=== PATIENT | female | born 1950 | race African-American/Black ===

== ENCOUNTER 2017-10-07 09:58 | Inpatient (IN) | payer OTHER ==
[~2017-10-07] VITALS: Ht 165.1 cm; Wt 55.3 kg
[2017-10-07] VITALS (19 sets, daily range): BP systolic 129–280; BP diastolic 73–166
--- NOTE | ~2017-10-07 | 2DMMODE ---
[facility] [place] [address] 2 D/M-MODE ECHOCARDIOGRAM Name: [facility] #: 242-P ADM IN M.R.#: [id number] Admission: 10/07/17 Attend Phys: Aaron Lomeli Discharge: Date of : 48 Date of Service: 10/08/17 1428 Report #: [id number] THIS REPORT FOR: //name// APPROVED REPORT Study performed: 10/08/2017 09:31:40 EXAM: Comprehensive 2D, Doppler, and color-flow Echocardiogram Patient Location: ICU Room #: 242 Status: routine BSA: 1.64 BP: 177/65 mmHg Other Information Study Quality: Adequate Technically limited study due to lung disease. Indications CVA/TIA Diabetes Hypertension/HDD Echo Enhancing Agent Indication: Rule out Shunt Agent(s) / Amount(s) Used: Agitated Saline 6 cc 2D Dimensions RVDd: 22.24 mm LVEF(%): 65.57 (>50%) IVSd: 11.07 (7-11mm) LVOT Diam: 15.33 (18-24mm) LVDd: 39.74 mm PWd: 10.32 (7-11mm) LVDs: 25.62 (25-40mm) Aortic Root: 26.24 mm IVC: 19.00 mm Acuna's LVEF: 65.57 % Volumes Left Atrial Volume (Systole) Single Plane 4CH: 21.41 mL Single Plane 2CH: 32.09 mL LA ESV Index: 21.00 mL/m2 Aortic Valve AoV Peak Dimas.: 2.01 m/s AO Peak Gr.: 16.12 mmHg LVOT Max P.[address] [facility] [address] [address] 2 D/M-MODE ECHOCARDIOGRAM Name: ANNA MARIEPARRIS [facility] Room #: [facility] IN ..#: [id number] Admission: 10/07/17 Attend Phys: Aaron Lomeli Discharge: Date of : 48 Date of Service: 10/08/17 1428 Report #: [id number] LVOT Max V: 0.94 m/s DAISY Vmax: 0.87 cm2 AI Vmax: 4.24 m/s AI Barron: 3.39 m/s2 AI PHT: 363.28 ms Mitral Valve E/A Ratio: 0.7 MV Decel. Time: 228.58 ms MV E Max Dimas.: 0.69 m/s MV A Dimas.: 1.05 m/s MV PHT: 66.29 ms IVRT: 79.58 ms Pulmonary Valve PV Peak Dimas.: 1.10 m/s PV Peak Gr.: 4.81 mmHg Pulmonary Vein P Vein S: 0.67 m/s P Vein A: 0.26 m/s P Vein D: 0.27 m/s P Vein A Dur.: 117.6 msec P Vein S/D Ratio: 2.48 Tricuspid Valve RAP Estimate: 5.00 mmHg Left Ventricle The left ventricle is normal size. Mild concentric left ventricular hypertrophy. The left ventricular systolic function is normal. The left ventricular ejection fraction is within the normal range. LVEF is 60-65%. Mild diastolic dysfunction is present (impaired relaxation pattern). Right Ventricle The right ventricle is normal size. The right ventricular systolic function is normal. Atria The left atrium size is normal. Injection of bubbles documented no interatrial shunt. The right atrium size is normal. Aortic Valve The aortic valve is normal in structure. Mild to moderate aortic regurgitation. There is no aortic valvular stenosis. Mitral Valve The mitral valve is normal in structure. Trace mitral regurgitation. [facility] [address] [place] [address] 2 D/M-MODE ECHOCARDIOGRAM Name: PARRIS THRASHER Room #: 242-P [facility] IN [facility]#: [id number] Admission: 10/07/17 Attend Phys: Aaron Lomeli Discharge: Date of : 48 Date of Service: 10/08/17 1428 Report #: [id number] No evidence of mitral valve stenosis. Tricuspid Valve The tricuspid valve is normal in structure. There is no tricuspid valve regurgitation noted. Unable to assess PA pressure. Pulmonic Valve The pulmonary valve is normal in structure. There is no pulmonic valvular regurgitation. Great Vessels The aortic root is normal in size. Ascending aorta is not well visualized. IVC is normal in size and collapses >50% with inspiration. Pericardium There is no pericardial effusion. <Conclusion> The left ventricle is normal size. Mild concentric left ventricular hypertrophy. The left ventricular systolic function is normal. Mild diastolic dysfunction is present (impaired relaxation pattern). The right ventricle is normal size. The left atrium size is normal. Injection of bubbles documented no interatrial shunt. Mild to moderate aortic regurgitation. Trace mitral regurgitation. <ELECTRONICALLY SIGNED> By: Anderson Silva MD 10/08/17 1428 1428 1428 Anderson Silva MD /INF
--- NOTE | ~2017-10-07 | HC ---
[facility] [place] [address] CONSULTATION Name: PARRIS THRASHER Room #: 404-P [facility] IN M.R.#: [id number] Admission: 10/07/17 Attend Phys: Aaron Yang Discharge: 10/10/17 Date of : 48 Report #: [id number] THIS REPORT FOR: //name// CC: LAM physician/PCP Aaron Yang DATE OF SERVICE: 10/07/2017 HISTORY OF PRESENT ILLNESS: This is a 67-year-old female patient who was evaluated by me for stroke-like symptoms on the right side. This patient was noticed to be somewhat ataxic and some nonspecific symptom on the right side. She indicated that she was dragging her leg. Symptoms have started yesterday, but she did not seek any medical attention. Symptom did not become too much worse as I understand and was stable. She has longstanding hypertension. She stopped seeing a doctor long time ago. She has not checked her blood pressure. She does not know what her last blood pressure was. REVIEW OF SYSTEMS: uncontrolled hypertension for a long period of time. She has not a physician she has not seen a physician and she has not checked her blood pressure on any outside facility for a long time. It looks like she is also a diabetic and has not taken any treatment for her diabetes either. Her cholesterol is pretty high, but she does not even know that and is not taking any medication. It looks like she has multiple vascular risk factors and she has not seen any physician or had any management of that. Review of systems is positive for diabetes, hypertension and now stroke. 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 This was her relevant 14-point review of system. PAST MEDICAL HISTORY: Positive for uncontrolled hypertension. FAMILY HISTORY: Negative for any early age stroke. SOCIAL HISTORY: She smokes. PHYSICAL EXAMINATION: NEUROLOGICAL: Indicate she is alert. She is responsive. She is a very nice person but does not take care of her vascular risk factor. Her speech, concentration, fund of knowledge and memory is at her baseline. Cranial nerve examination 2-12 is mostly unremarkable. She does have some altered sensation, but she does not do very well with [id number]-[id number] or iqxx-wu-egmn. Her tone looks symmetrical. CARDIAC: Examination demonstrates normal heart sounds and no atrial fibrillation. PULMONARY: No respiratory difficulty was noted. EXTREMITIES: Her pulses are palpable. She has no edema, cyanosis or jaundice. VITAL SIGNS: Her blood pressure now is 149/143 and it was 280/152 when she came [address] [address] CONSULTATION Name: PARRIS THRASHER Room #: 404-P [facility] IN .R.#: [id number] Admission: 10/07/17 Attend Phys: Aaron Yang Discharge: 10/10/17 Date of : 48 Report #: [id number]. She probably has been hypertensive for long time. LABORATORY DATA: Indicate multiple abnormalities including a blood sugar of 348 and a LDL of 182. She had an MRI and a carotid Doppler done. MRI demonstrate finding consistent with stroke on the left side. Carotid Doppler demonstrates left carotid stenosis. IMPRESSION: This patient is having a pretty significant problems. She has a stroke, she has a significant stenosis in the left carotid, which need to be further confirmed and should be considered symptomatic and she has multiple vascular risk factors including diabetes, hypertension and smoking. RECOMMENDATIONS: 1. This patient has uncontrolled hypertension for a long time. Her blood pressure should be kept somewhat high. I talked to the Emergency Room physicians in that regard and asked them to lower the systolic blood pressure about 25% at a time and then only slowly lower it. That is even more important now since she has a stenosis in both carotid and it would be desirable to keep the blood pressure high at the moment. It should be at least 160 to 170 systolic, although her blood pressure did go low and she tolerated that. It should not go lower than 160 to 170 and can be little bit higher than that until it can be controlled and it should be only slowly control over a long period of time. 2. Aspirin. 3. She needs to be on statin. 4. She needs a Vascular Surgery consult since her deficit is minimum and a carotid stenosis need to be further evaluated and if it is confirmed that she has 70% or more stenosis, then it should be considered symptomatic and surgical intervention need to be considered in this patient. I saw this patient earlier. I had a long discussion with this patient at that time and I saw her back again with the nurses and I discussed all the case with the nurses. More than 50 minutes of vfyp-at-[id number] time was spent taking care of this patient today and majority of that time was spent counseling the patient and coordinating her care. Thank you very much for this referral and if you have any question, please feel free to contact me. <ELECTRONICALLY SIGNED> By: Jose Barrera MD 10/10/17 1348 0007 Jose Barrera MD /nt
--- NOTE | ~2017-10-07 | EKG ---
[place] [address] [facility] [place] [address] ELECTROCARDIOGRAM REPORT Name: JOVANIMARCIAPARRIS Room #: 242-P ADM IN M.R.#: [id number] Admission: 10/07/17 Attend Phys: Aaron Yang Discharge: Date of : 48 Report #: [id number] THIS REPORT FOR: //name// [facility] Test Date: 2017-10-07 Test Time: 10:24:07 Pat Name: PARRIS THRASHER Department: Room: 242 Gender: F Imaging Aide: TYLER : 1950 Requested By: Luke Boss Order Number: [id number] MD: Carlitos Wang Measurements Intervals Melvin Rate: 97 P: 79 AL: 134 QRS: 28 QRSD: 90 T: -53 QT: 339 QTc: 431 Interpretive Statements Sinus rhythm Ventricular premature complex Probable left atrial enlargement Probable LVH with secondary repol abnrm No previous ECG available for comparison Electronically Signed On 10-07-2017 23:39:01 JOINT SEALER by Carlitos Wang [email or web address] <ELECTRONICALLY SIGNED> By: Carlitos Wang MD 10/07/17 2339 1024 1024 Carlitos Wang MD /JESSIE
--- NOTE | ~2017-10-07 | HC ---
[facility] [place] [address] CONSULTATION Name: PARRIS THRASHER Room #: 404-P ADM IN M.R.#: [id number] Admission: 10/07/17 Attend Phys: Aaron Yang Discharge: Date of : 48 Report #: [id number] THIS REPORT FOR: //name// CC: LAM physician/PCP Aaron Yang DATE OF SERVICE: 10/08/2017 HISTORY OF PRESENT ILLNESS: The patient is a 67-year-old -Chinese female who was admitted for right-sided weakness dragging her right lower extremity. She was noted to have uncontrolled hypertension. MRI revealed small acute subacute left posterior basal ganglia CVA. Neurology is involved. Ultrasound revealed greater than 70% left proximal internal carotid artery stenosis. Vascular Surgery has been consulted. She is being further evaluated. We are seeing her in rehabilitation medicine consultation. PAST MEDICAL HISTORY: Includes diabetes mellitus and hypertension. There is a note of some nerve damage in the right hand. HABITS: Current every day smoker, one half pack per day. No history of alcohol abuse. MEDICATIONS: Please see the full medication listing. ALLERGIES: PENICILLIN AND SHRIMP. SOCIAL HISTORY: Lives in an apartment one floor, one step, did not utilize gait aids. There are children in the area as well as a sister. REVIEW OF SYSTEMS: No current complaints of chest pain, shortness of breath or abdominal discomfort. No focal extremity pain complaints. She thinks she is moving that right leg a little better. Did not offer any complaints of swallowing or headache. PHYSICAL EXAMINATION: GENERAL: A 67-year-old thin -Chinese female in no obvious distress. VITAL SIGNS: Last recorded temperature 98.3, pulse 63, respirations 14, blood pressure 173/68. She is alert, pleasant. HEENT: Appeared to be benign. Dentition is poor. NEUROLOGIC: Facies are symmetric. EOMs are full. No obvious visual field neglect to confrontation. Functional range of motion of both upper extremities. She does have some problems with coordination of that right upper extremity with gdwhlh-tn-tyhw, which is decreased compared to the left. She is noted to the left handed. I would grade her strength of that right upper extremity is a 4-/5, left upper extremity is 4/5. Lower extremities: Strength is probably a grade 4-4+/5. There was no clonus. No focal sensory decrease to simultaneous [facility] [address] [place] [address] CONSULTATION Name: PARRIS THRASHER Room #: 404-P [facility] IN M.R.#: [id number] Admission: 10/07/17 Attend Phys: Aaron Yang Discharge: Date of : 48 Report #: [id number]. ASSESSMENT: A 67-year-old -Chinese left-handed female with the following problem list: 1. Nondominant hemispheric left acute subacute posterior basal ganglia cerebrovascular accident. 2. Right lower extremity greater than right upper extremity weakness with decreased coordination. 3. Uncontrolled hypertension. 4. Diabetes mellitus. 5. 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 6. History of tobacco abuse. 7. Left proximal internal carotid artery stenosis per Doppler study. Further evaluation is underway. PLAN: PT and OT orders are added. We will need to see how she does in therapies. We will be glad to follow along regarding her rehab therapy needs from here. <ELECTRONICALLY SIGNED> By: Kenan Hensley MD 10/09/17 1123 1230 0019 Kenan Hensley MD /PMT
[~2017-10-07 09:58] MED LIST: APAP500; BACTRIM DS TAB1 EACH PO; BIOFREEZE118 ML; BP MED; DIFLUCAN150 MG PO; DOXYCYCLINE 10100 MG PO; IBUPROFEN 600600 M1; METFORMIN HCL500 MG; NAPROSYN500 MG PO; NORCO 5-325 TA1 EACH PO; PRED FORTE 1% EY5 M1 OP; VITAMIN D5000 UNI1 PO; VITAMIN E100 UNI3 PO; VITAMINC500 PO
[2017-10-07 10:47] LABS: HEMATOCRIT 42.6 % (37.0-47.0); HEMOGLOBIN 14.5 gm/dL (12.0-15.0); MCH 27.6 pg (26.0-34.0); MCHC 34.1 g/dL (28.0-37.0); MCV 80.8 fL (80.0-100.0); RBC 5.27 mil/uL (4.20-5.00); RDW 14.5 % (10.5-14.5); WBC 8.1 thou/uL (4.0-11.0)
[2017-10-07 10:52] LABS: CALCIUM 9.7 mg/dL (8.5-10.1); POTASSIUM 4.2 mmol/L (3.5-5.1)
[2017-10-07 10:57] LABS: APTT 27.2 Seconds (24.5-32.8)
[2017-10-07 11:01] LABS: TROPONIN-I 0.25 ng/mL (<0.06)
[2017-10-07 12:08] LABS: CHOLESTEROL 269 mg/dL (<200); HDL CHOLESTEROL 60 mg/dL (>40); LDL CHOLESTEROL 182 mg/dL (<100); TC:HDL 4.5 Ratio (Not establshd); TRIGLYCERIDE 136 mg/dL (<150); VLDL 27 mg/dL (<40)
[2017-10-07] MEDS ORDERED: VITAMIN E400 UNIT PO (18:06)
[2017-10-07] MEDS ORDERED: FISH OIL 1,001000 M2 PO (18:06)
[2017-10-07] MEDS ORDERED: MULTI VITAMIN1 EACH PO (18:10)
[2017-10-07 20:06] LABS: GLYCOHEMOGLOBIN (HGB A1C) 12.1 % (4.8-5.6)
[2017-10-08] VITALS (19 sets, daily range): BP systolic 135–181; BP diastolic 59–125
[2017-10-08 03:45] LABS: HEMOGLOBIN 13.7 gm/dL (12.0-15.0); MCH 26.8 pg (26.0-34.0); MCHC 33.4 g/dL (28.0-37.0); MCV 80.3 fL (80.0-100.0); RBC 5.11 mil/uL (4.20-5.00); RDW 14.4 % (10.5-14.5); WBC 8.8 thou/uL (4.0-11.0)
[2017-10-08 04:02] LABS: ALBUMIN 3.3 g/dL (3.4-5.0); CALCIUM 9.6 mg/dL (8.5-10.1); CREATININE 1.1 mg/dL (0.6-1.0); POTASSIUM 3.7 mmol/L (3.5-5.1); TOTAL BILIRUBIN 0.5 mg/dL (<0.1-1.0); TOTAL PROTEIN 7.3 g/dL (6.4-8.2)
[2017-10-09] VITALS (8 sets, daily range): BP systolic 109–216; BP diastolic 56–98
[2017-10-10 04:00] VITALS: BP 161/70
[2017-10-10 07:39] VITALS: BP 175/79
[2017-10-10] MEDS ORDERED: LABETALOL 100100 MG PO (10:12)
[2017-10-10] MEDS ORDERED: LIPITOR 20 MG T20 M1 PO (10:12)
[2017-10-10] MEDS ORDERED: ASPIRIN325 PO (10:13)
[2017-10-10] MEDS ORDERED: AMARYL2 MG PO (10:13)
[2017-10-10] MEDS ORDERED: LISINOPRIL10 MG PO (10:14)
[2017-10-10] MEDS ORDERED: METFORMIN HCL500 MG PO (10:17)
[2017-10-10 10:32] VITALS: BP 175/79
[2017-10-10 10:52] VITALS: BP 175/79
== END 2017-10-10 13:16 | disposition home health service (06) | DRG 65 ==
LOC: ER 09:58 → EROBS 11:02 → ICU 11:02 → 4N 10-09 06:56 → ENTRNSPT 10-10 12:57 → EDTRNSPTSTS 10-10 13:02 → 4N 10-10 13:16
PROVIDERS: Emergency Medicine; Hospitalist
PROC: B24BZZ4 Ultrasonography of Heart with Aorta, Transesophageal (ICD-10-PCS; principal; 2017-10-08)
DX: I63.232 Cerebral infarction due to unspecified occlusion or stenosis of left carotid arteries (principal); I16.1 Hypertensive emergency; I10 Essential (primary) hypertension; E11.65 Type 2 diabetes mellitus with hyperglycemia; E78.5 Hyperlipidemia, unspecified; F17.210 Nicotine dependence, cigarettes, uncomplicated; Z79.84 Long term (current) use of oral hypoglycemic drugs; Z79.899 Other long term (current) drug therapy; Z71.6 Tobacco abuse counseling; Z88.0 Allergy status to penicillin; Z91.013 Allergy to seafood
CPT/HCPCS: 10203; 10790

== ENCOUNTER → 2017-10-25 | Outpatient (CLI) | payer OTHER ==
[~2017-10-25] MED LIST changes: +AMARYL2 MG PO; +AMLODIPINE BESY10 MG PO; +ASPIRIN325 PO; +CATAPRES0.1 MG PO; +COLACE 100 MG100 MG PO; +FISH OIL 1,001000 M2 PO; +HYDRALAZINE 5050 MG PO; +LABETALOL 100100 MG PO; +LIPITOR 20 MG T20 M1 PO; +LISINOPRIL10 MG PO; +LISINOPRIL20 MG PO; +METFORMIN HCL500 MG PO; +MULTI VITAMIN1 EACH PO; +NICOTINE1 EAC2 TRANSDERM; +NOVOLOG100 UNIT/1 SUBQ; +PROTONIX 20 MG20 M1 PO; +REMERON15 MG PO; +SPIRONOLACTONE25 M1 PO; +TRANDATE 200 M200 M1 PO; +VITAMIN E400 UNIT PO
== END ==
LOC: SEN 08:23
DX: I10 Essential (primary) hypertension (principal); I63.8 Other cerebral infarction; I65.22 Occlusion and stenosis of left carotid artery; F17.200 Nicotine dependence, unspecified, uncomplicated; E11.9 Type 2 diabetes mellitus without complications

== ENCOUNTER → 2017-11-07 | Outpatient (CLI) | payer OTHER | LOC: SEN 09:01 | DX: I10 Essential (primary) hypertension (principal); I65.22 Occlusion and stenosis of left carotid artery; E11.9 Type 2 diabetes mellitus without complications; I63.8 Other cerebral infarction; F17.200 Nicotine dependence, unspecified, uncomplicated ==